=== PATIENT | female | born 1965 | race Caucasian/White ===

== ENCOUNTER → 2019-01-11 | Outpatient (CLI) | payer MEDICARE ==
--- NOTE | ~2019-01-11 | HM ---
[place], [place] HOLTER MONITOR REPORT [facility] [id number] UNIT #: [id number] ROOM: DOCTOR: ROEL ESCALANTE MD BIRTHDATE: [birth year] DOS: 01/11/2019 24-HOUR HOLTER MONITOR: The patient was supposed to have a 24-hour Holter Monitor, but this recorded only for like appears to be only 12 hours. Monitor was noted to be off from 12:15 AM. From what we have, this is a limited study. The patient remained in sinus rhythm. Minimum heart rate is 60, maximum heart rate is 122, average of 82 beats per minute. Had episodes of sinus tachycardia. Isolated premature atrial contractions are present. No significant bradycardic episodes, but it is limited study, but the monitor was off at 12:15 AM. There is no diary. There is no data recorded. No medications. FINAL IMPRESSION: Limited study. No significant arrhythmia except for episode of sinus tachycardia, isolated premature atrial contractions. No significant pauses. ROEL ESCALANTE MD CM:HOLTER:HOLTER MONITOR REPORT [id number] ROEL ESCALANTE MD
== END | disposition home or self-care (01) ==
LOC: CARD 08:50
DX: R06.02 Shortness of breath (principal)

== ENCOUNTER 2019-06-04 18:44 | Emergency (ER) | payer MEDICARE ==
[~2019-06-04] VITALS: Ht 162.5 cm; Wt 98.4 kg
[2019-06-04] MEDS ORDERED: PRINIVIL5 M1 PO (20:00)
[2019-06-04] MEDS ORDERED: LAMICTAL100 MG PO (20:01)
[2019-06-04] MEDS ORDERED: DIAZEPAM5 MG PO (20:01)
[2019-06-04] MEDS ORDERED: QUETIAPINE FUMA50 M1 PO (20:02)
[2019-06-04] MEDS ORDERED: PROPRANOLOL HYD10 MG PO (20:03)
[2019-06-04] MEDS ORDERED: SIMVASTATIN20 MG PO (20:04)
[2019-06-04] MEDS ORDERED: ACID REDUCER20 MG PO (20:05)
[2019-06-04] MEDS ORDERED: HYDROXYZINE HCL25 MG PO (20:07)
[2019-06-04] MEDS ORDERED: ASPIRIN CHEWABL81 MG PO (20:07)
[2019-06-04] MEDS ORDERED: TRAMADOL HCL50 MG PO (20:09)
[2019-06-04] MEDS ORDERED: MAGNESIUM OXID400 MG PO (20:10)
[2019-06-04] MEDS ORDERED: VITAMIN D350 MCG PO (20:12)
[2019-06-04 20:17] LABS: BASO % 0.5 % (0.0-1.0); EOS # 0.4 10*3/uL (0.0-0.4); HEMATOCRIT 44.8 % (37.0-47.0); HEMOGLOBIN 14.2 g/dl (12.0-16.0); LYMPH # 1.7 10*3/uL (1.3-4.4); LYMPH % 21.1 % (27.0-41.0); MEAN CELL VOLUME 89.1 fl (81.0-99.0); MEAN CORPUSCULAR HGB 28.2 pg (27.0-31.0); MEAN CORPUSCULAR HGB CONC 31.7 g/dl (33.0-37.0); MEAN PLATELET VOLUME 10.3 fl (9.6-12.3); MONO # 0.6 10*3/uL (0.1-1.0); MONO % 7.3 % (3.0-9.0); NEUT # 5.1 10*3/uL (2.3-7.9); NEUT % 65.8 % (47.0-73.0); PLATELET COUNT AUTOMATED 292 10*3/uL (130-400); RED BLOOD COUNT 5.03 10*6/uL (4.10-5.10); RED CELL DISTRI WIDTH 13.8 % (0-14.5); WHITE BLOOD COUNT 7.8 10*3/uL (4.8-10.8)
[2019-06-04 20:32] LABS: ACETAMINOPHEN (TYLENOL) < 5.0 ug/ml (10-30); ALBUMIN 3.4 gm/dl (3.1-4.5); ALKALINE PHOSPHATASE 92 U/L (45-117); BUN 19 mg/dl (7-24); CHLORIDE 104 mmol/L (98-107); CREATININE 1.11 mg/dL (0.55-1.02); ETHYL ALCOHOL < 3.0 mg/dl (<3); POTASSIUM 3.8 mmol/L (3.5-5.1); SGOT/AST 11 IU/L (3-35); SGPT/ALT 16 U/L (12-78); SODIUM 138 mmol/L (136-145); TOTAL PROTEIN 7.1 gm/dL (6.4-8.2)
== END 2019-06-04 22:41 | disposition home or self-care (01) ==
LOC: ED 18:44
PROVIDERS: Emergency Medicine Emergency Medical Services
DX: F43.21 Adjustment disorder with depressed mood (principal); F41.9 Anxiety disorder, unspecified; Z79.899 Other long term (current) drug therapy; Z79.82 Long term (current) use of aspirin